=== PATIENT | female | born 1990 | race Caucasian/White ===

== ENCOUNTER 2022-09-28 12:15 | Inpatient (IN) | payer OTHER ==
[2022-09-28] MEDS ORDERED: CITRIC ACID/SODIUM CITRATE 30 ML UNIT-DOSE CUP PO ONE ×2 (13:00→13:50)
[2022-09-28] MEDS ORDERED: ELECTROLYTE-148 SOLN 1,000 ML IV ONE (13:00)
[2022-09-28 13:23] VITALS: BMI 29.2
[2022-09-28] MEDS ORDERED: ELECTROLYTE-148 SOLN 1,000 ML IV SCH ×2 (13:30→14:20)
[2022-09-28] MEDS ORDERED: ONDANSETRON 4 MG/2 ML VIAL IVPUSH PRN (13:44)
[2022-09-28] MEDS ORDERED: ELECTROLYTE-148 SOLN 500 ML IV ONE (13:50)
[2022-09-28] MEDS ORDERED: FENTANYL CITRATE/PF 50 MCG/ML VIAL ONE (14:00)
[2022-09-28] MEDS ORDERED: morphine SULFATE (PF) 1 MG/2 ML SYRINGE ONE (14:00)
[2022-09-28] MEDS ORDERED: ONDANSETRON 4 MG/2 ML VIAL ONE (14:18)
[2022-09-28] MEDS ORDERED: ceFAZolin SODIUM 1 GM VIAL ONE (14:20)
[2022-09-28] MEDS ORDERED: OXYTOCIN 10 UNITS/ML VIAL ONE ×2 (14:30→15:12)
[2022-09-28] MEDS ORDERED: METHYLERGONOVINE MALEATE 0.2 MG/1 ML AMP IM PRN (15:39)
[2022-09-28] MEDS ORDERED: SENNOSIDES/DOCUSATE COMBO (SENNA PLUS) TABLET (UD) PO PRN (15:39)
[2022-09-28] MEDS ORDERED: OXYTOCIN 20 UNITS in 0.9% NS 20 UNIT/1,000 ML INFUS.BAG IV SCH (15:45)
[2022-09-28] MEDS: IBUPROFEN 800 MG/8 ML IJ IVPB PRN (17:51)
[2022-09-28] MEDS: ACETAMINOPHEN 325 MG TABLET (FP) PO PRN (20:01)
[2022-09-28] MEDS: SIMETHICONE 80 MG TAB.CHEW (FP) PO PRN (20:01)
[2022-09-29] MEDS: IBUPROFEN 800 MG/8 ML IJ IVPB PRN ×2 (01:58→09:04)
[2022-09-29 08:13] LABS: BASO % 0.7 % (0-2.0); EOS % 2.7 % (0-4.5); HEMATOCRIT 28.9 % (32.4-45.2); HEMOGLOBIN 9.8 GM/dL (10.7-15.3); LYMPH % 15.8 % (8-40); MCH 28.5 pg (25.7-33.7); MCHC 33.8 g/dl (32.0-36.0); MEAN CELL VOLUME 84.4 fl (80-96); MEAN PLT VOLUME 10.1 fl (7.5-11.1); MONO % 6.7 % (3.8-10.2); NEUT % 74.1 % (42.8-82.8); PLATELET COUNT 156 10^3/uL (134-434); RBC 3.43 M/mm3 (3.60-5.2); RDW 14.1 % (11.6-15.6); WHITE BLOOD COUNT 10.7 K/mm3 (4.0-10.0)
[2022-09-29] MEDS ORDERED: DIPHTH,PERTUSS(ACELL),TET 0.5 ML DISP.SYRIN IM ONE ×2 (10:00→10:30)
[2022-09-29] MEDS: PRENATAL VITAMINS W/ FOLIC ACID TABLET (FP) PO SCH (11:23)
[2022-09-29] MEDS: SIMETHICONE 80 MG TAB.CHEW (FP) PO PRN ×3 (11:23→22:16)
[2022-09-29] MEDS: ACETAMINOPHEN 325 MG TABLET (FP) PO PRN (12:33)
[2022-09-29] MEDS: oxyCODONE HCL 5 MG TABLET PO PRN ×2 (14:57→19:30)
[2022-09-29] MEDS ORDERED: BISACODYL 10 MG SUPP.RECT RC PRN (15:39)
[2022-09-29] MEDS: IBUPROFEN 600 MG TABLET (FP) PO PRN ×2 (17:26→22:18)
[2022-09-30] MEDS: oxyCODONE HCL 5 MG TABLET PO PRN ×2 (02:41→09:43)
[2022-09-30] MEDS: IBUPROFEN 600 MG TABLET (FP) PO PRN ×2 (06:34→13:57)
[2022-09-30] MEDS: SIMETHICONE 80 MG TAB.CHEW (FP) PO PRN ×2 (06:35→15:50)
[2022-09-30 09:32] VITALS: BP 100/65; PULSE 82; RESP 18; TEMP 98.3
[2022-09-30] MEDS: PRENATAL VITAMINS W/ FOLIC ACID TABLET (FP) PO SCH (09:43)
[2022-09-30] MEDS: ACETAMINOPHEN 325 MG TABLET (FP) PO PRN (15:51)
== END 2022-09-30 16:07 | disposition home or self-care (01) | DRG 540 ==
LOC: JLDR 12:15 → J3W 17:15
PROVIDERS: ADMIT Obstetrics & Gynecology; ATTEND Obstetrics & Gynecology
PROC: 10D00Z1 Extraction of Products of Conception, Low, Open Approach (ICD-10-PCS; principal; 2022-09-28)
PROC: 0DNW0ZZ Release Peritoneum, Open Approach (ICD-10-PCS; 2022-09-28)
DX: O34.211 Maternal care for low transverse scar from previous cesarean delivery (principal); O40.3XX0 Polyhydramnios, third trimester, not applicable or unspecified; N73.6 Female pelvic peritoneal adhesions (postinfective); Z3A.39 39 weeks gestation of pregnancy; Z37.0 Single live birth
CPT/HCPCS: 36415; 85025; 88307-TC; 90715; 94010

== ENCOUNTER 2024-06-19 11:20 | Inpatient (IN) | payer OTHER ==
[2024-06-19] MEDS: ELECTROLYTE-148 SOLN 1,000 ML IV SCH (11:50)
[2024-06-19 12:54] VITALS: BMI 28.3
[2024-06-19] MEDS: CITRIC ACID/SODIUM CITRATE 30 ML UNIT-DOSE CUP PO ONE (13:40)
[2024-06-19] MEDS ORDERED: morphine SULFATE (PF) 1 MG/2 ML SYRINGE ONE (13:40)
[2024-06-19] MEDS ORDERED: FENTANYL CITRATE/PF 50 MCG/ML VIAL ONE (13:40)
[2024-06-19] MEDS ORDERED: OXYTOCIN 10 UNITS/ML VIAL ONE (14:15)
[2024-06-19] MEDS ORDERED: METHYLERGONOVINE MALEATE 0.2 MG/1 ML AMP IM PRN (15:27)
[2024-06-19] MEDS ORDERED: IBUPROFEN (CALDOLOR) 800 MG/200 ML PREMIX BAGS IVPB ONE (17:12)
[2024-06-19] MEDS ORDERED: OXYTOCIN 20 UNITS in 0.9% NS 20 UNIT/1,000 ML INFUS.BAG IV ONE (17:12)
[2024-06-19] MEDS: OXYTOCIN 20 UNITS in 0.9% NS 20 UNIT/1,000 ML INFUS.BAG IV SCH (17:20)
[2024-06-19] MEDS: IBUPROFEN 800 MG/8 ML IJ IVPB PRN (17:20)
[2024-06-19 18:26] VITALS: RESP 18
[2024-06-19] MEDS: ACETAMINOPHEN 1000 MG/100 ML BAG IVPB PRN (18:41)
[2024-06-20] MEDS ORDERED: oxyCODONE HCL 5 MG TABLET PO PRN (03:27)
[2024-06-20] MEDS: oxyCODONE HCL 5 MG TABLET PO PRN (03:33)
[2024-06-20] MEDS: SIMETHICONE 80 MG TAB.CHEW (FP) PO PRN (03:33)
[2024-06-20 08:43] LABS: BASO % 0.7 % (0-2.0); EOS % 2.6 % (0-4.5); HEMATOCRIT 24.3 % (32.4-45.2); HEMOGLOBIN 8.2 GM/dL (10.7-15.3); LYMPH % 20.4 % (8-40); MCH 26.7 pg (25.7-33.7); MCHC 33.6 g/dl (32.0-36.0); MEAN CELL VOLUME 79.6 fl (80-96); MEAN PLT VOLUME 9.7 fl (7.5-11.1); MONO % 7.6 % (3.8-10.2); NEUT % 68.7 % (42.8-82.8); PLATELET COUNT 172 10^3/uL (134-434); RBC 3.06 M/mm3 (3.60-5.2); RDW 15.6 % (11.6-15.6)
[2024-06-20] MEDS: PRENATAL VITAMINS W/ FOLIC ACID TABLET (FP) PO SCH (09:13)
[2024-06-20] MEDS: FERROUS SO4 325 MG TABLET (FP) PO SCH (09:13)
[2024-06-20] MEDS: ACETAMINOPHEN 325 MG TABLET (FP) PO PRN (09:13)
[2024-06-20] MEDS: IBUPROFEN 600 MG TABLET (FP) PO PRN (11:11)
[2024-06-20] MEDS ORDERED: BISACODYL 10 MG SUPP.RECT RC PRN (15:27)
[2024-06-20] MEDS ORDERED: DIPHENHYDRAMINE HCL 25 MG/10 ML CUP PO PRN (18:26)
[2024-06-20] MEDS: diphenhydrAMINE HCL 25 MG CAPSULE (FP) PO PRN (18:29)
[2024-06-20] MEDS: SENNOSIDES/DOCUSATE COMBO (SENNA PLUS) TABLET (UD) PO PRN (19:42)
[2024-06-21] MEDS: FLU VACCINE (FLULAVAL) PF 45 MCG/0.5 ML SYRINGE 2024-2025 IM ONE (09:08)
[2024-06-22 08:57] VITALS: BP 111/66; PULSE 81; TEMP 98.8
== END 2024-06-22 12:00 | disposition home or self-care (01) | DRG 540 ==
LOC: JLDR 11:20 → J3W 17:35
PROVIDERS: ADMIT Obstetrics & Gynecology; ATTEND Obstetrics & Gynecology
PROC: 10D00Z1 Extraction of Products of Conception, Low, Open Approach (ICD-10-PCS; principal; 2024-06-19)
PROC: 0JN Subcutaneous Tissue and Fascia, Release (ICD-10-PCS; 2024-06-19)
DX: O34.211 Maternal care for low transverse scar from previous cesarean delivery (principal); N85.8 Other specified noninflammatory disorders of uterus; Z3A.39 39 weeks gestation of pregnancy; N73.6 Female pelvic peritoneal adhesions (postinfective); O99.892 Other specified diseases and conditions complicating childbirth; Z37.0 Single live birth
CPT/HCPCS: 36415; 59409; 80053; 85025; 85610; 85730; 86780; 86803; 86850; 86900; 86901; 87340; 87389; 88307-TC; 90656; G0008; J0131